=== PATIENT | female | born 1955 | race Two or more races ===

== ENCOUNTER 2025-03-06 12:00 | Inpatient (IN) | payer OTHER ==
[~2025-03-06] VITALS: Ht 160 cm; Wt 56.7 kg
[2025-03-06 15:07] VITALS: BP 160/84
[2025-03-14] MEDS ORDERED: CEFTRIAXONE SODIUM 2,000 MG VIAL ONE (05:50)
[2025-03-14] MEDS ORDERED: METRONIDAZOLE/SODIUM CHLORIDE 500 MG/100 ML PIGGYBACK IV ONE (05:50)
[2025-03-14] MEDS ORDERED: SUGAMMADEX SODIUM 200 MG/2 ML VIAL IV ONE (08:41)
[2025-03-14] MEDS ORDERED: FAMOTIDINE/PF 20 MG/2 ML VIAL IV PUSH SCH (10:00)
[2025-03-14] MEDS ORDERED: CIPROFLOXACIN IN 5 % DEXTROSE 400 MG/200 ML PIGGYBAG IV SCH (10:00)
[2025-03-14] MEDS ORDERED: OxyCODONE HCL 5 MG TABLET (ROXICODONE) PO PRN (10:00)
[2025-03-14] MEDS ORDERED: RINGERS SOLUTION,LACTATED 1,000 ML IV SCH (10:00)
[2025-03-14] MEDS ORDERED: ONDANSETRON HCL 2 MG/ML VIAL IV PRN (10:00)
[2025-03-14] MEDS ORDERED: METRONIDAZOLE/SODIUM CHLORIDE 500 MG/100 ML PIGGYBACK IV SCH (10:00)
[2025-03-14] MEDS ORDERED: MORPHINE SULFATE 4 MG/ML CARTRIDGE IV PRN (10:00)
[2025-03-14] MEDS ORDERED: LACTOBACILLUS ACIDOPHILUS 1 CAP CAP PO SCH (10:01)
[2025-03-14] MEDS ORDERED: CIPROFLOXACIN IN 5 % DEXTROSE 400 MG/200 ML PIGGYBAG IV ONE (11:40)
[2025-03-14] MEDS ORDERED: FAMOTIDINE/PF 20 MG/2 ML VIAL ONE (11:41)
[2025-03-14] MEDS ORDERED: ACETAMINOPHEN 500 MG GEL..CAP PO SCH (12:00)
[2025-03-14] MEDS ORDERED: HYOSCYAMINE SULFATE 0.125 MG TAB.SUBL SL SCH (13:00)
[2025-03-14 16:05] VITALS: BP 145/75; O2SAT 100
[2025-03-14] MEDS ORDERED: GABAPENTIN 300 MG CAPSULE PO SCH (17:00)
[2025-03-15 00:37] VITALS: BP 109/64; O2SAT 98
[2025-03-15 06:49] LABS: BASO % 0.2 % (0.1-1.2); EOS # 0.00 (0.04-0.54); EOS % 0.0 % (0.7-7.0); LYMPH # 1.17 (1.18-3.74); LYMPH % 10.2 % (19.3-53.1); MEAN PLATELET VOLUME 9.30 fl (9.4-12.4); MONO # 1.10 (0.24-0.82); MONO % 9.6 % (4.7-12.5); NEUT # 9.15 (1.56-6.13); NEUT % 79.7 % (34.0-71.1); RED CELL DISTRIBUTION WIDTH 13.2 % (11.6-14.4)
[2025-03-15 08:00] VITALS: BP 115/63; O2SAT 98
[2025-03-15 09:43] LABS: BUN CREA RATIO 11.0 (7.0-25.0); CREATININE SERUM 0.57 mg/dL (0.55-1.02); GFR 105.17; GLUCOSE FASTING 120.0 mg/dL (65-100); OSMOLALITY SERUM 286.0 MOSM/KG (275-295)
[2025-03-15] MEDS ORDERED: POTASSIUM CHLORIDE 20MEQ/100ML H2O PB IV NR (11:30)
[2025-03-15 16:04] VITALS: BP 145/76; O2SAT 99
[2025-03-15] MEDS ORDERED: ENOXAPARIN SODIUM 40 MG/0.4 ML SYRINGE SUBCUTANEO SCH (17:00)
[2025-03-16 00:17] VITALS: BP 116/68; O2SAT 96
[2025-03-16 07:54] LABS: BASO % 0.3 % (0.1-1.2); EOS # 0.04 (0.04-0.54); EOS % 0.4 % (0.7-7.0); LYMPH # 1.61 (1.18-3.74); LYMPH % 14.1 % (19.3-53.1); MEAN PLATELET VOLUME 9.20 fl (9.4-12.4); MONO # 0.96 (0.24-0.82); MONO % 8.4 % (4.7-12.5); NEUT # 8.71 (1.56-6.13); NEUT % 76.4 % (34.0-71.1); RED CELL DISTRIBUTION WIDTH 13.4 % (11.6-14.4)
[2025-03-16 08:00] VITALS: BP 126/68; O2SAT 98
[2025-03-16 08:29] LABS: BUN CREA RATIO 13.0 (7.0-25.0); CREATININE SERUM 0.39 mg/dL (0.55-1.02); GFR 162.95; GLUCOSE FASTING 94.0 mg/dL (65-100); OSMOLALITY SERUM 288.0 MOSM/KG (275-295)
[2025-03-16] MEDS ORDERED: ENOXAPARIN SODIUM 40 MG/0.4 ML SYRINGE SUBCUTANEO SCH (09:00)
[2025-03-16] MEDS ORDERED: Cyanocobalamin/Mecobalamin 1 TAB.SL SL SCH (09:28)
[2025-03-16] MEDS ORDERED: POTASSIUM CHLORIDE 20MEQ/100ML H2O PB IV NR (09:30)
[2025-03-16] MEDS ORDERED: POTASSIUM PHOS,M-BASIC-D-BASIC 15 MM in 0.9 % SODIUM CHLORIDE 250 ML IV NR (09:30)
[2025-03-16] MEDS ORDERED: SOD FERRIC GLUC COMPLX/SUCROSE 62.5 MG in 0.9 % SODIUM CHLORIDE 50 ML IV SCH (12:00)
[2025-03-16 16:00] VITALS: BP 125/67; O2SAT 99
[2025-03-17 00:18] VITALS: BP 117/65; O2SAT 97
[2025-03-17 06:55] LABS: BASO % 0.3 % (0.1-1.2); EOS # 0.07 (0.04-0.54); EOS % 0.7 % (0.7-7.0); LYMPH # 1.11 (1.18-3.74); LYMPH % 11.0 % (19.3-53.1); MEAN PLATELET VOLUME 9.40 fl (9.4-12.4); MONO # 0.70 (0.24-0.82); MONO % 6.9 % (4.7-12.5); NEUT # 8.16 (1.56-6.13); NEUT % 80.8 % (34.0-71.1); RED CELL DISTRIBUTION WIDTH 13.2 % (11.6-14.4)
[2025-03-17 08:44] VITALS: BP 117/61; O2SAT 98
[2025-03-17] MEDS ORDERED: INTESTINEX680 M1 PO (15:35)
[2025-03-17] MEDS ORDERED: HYOSCYAMINE0.125 M1 SL (15:36)
[2025-03-17] MEDS ORDERED: MIRALAX510 GM PO (15:36)
[2025-03-17] MEDS ORDERED: INTEGRA F CAPS1 EACH PO (15:36)
[2025-03-17 17:13] VITALS: BP 163/82; O2SAT 99
== END 2025-03-17 18:37 | disposition home or self-care (01) | DRG 330 ==
LOC: O/R 03-14 06:00 → SURH 03-14 07:00
PROVIDERS: Internal Medicine Geriatric Medicine; ADMIT Surgery; ATTEND Surgery
PROC: 0DBP4ZZ Excision of Rectum, Percutaneous Endoscopic Approach (ICD-10-PCS; 2025-03-14)
PROC: 0DNW4ZZ Release Peritoneum, Percutaneous Endoscopic Approach (ICD-10-PCS; 2025-03-14)
PROC: 0DJD8ZZ Inspection of Lower Intestinal Tract, Via Natural or Artificial Opening Endoscopic (ICD-10-PCS; 2025-03-14)
PROC: 0DTN4ZZ Resection of Sigmoid Colon, Percutaneous Endoscopic Approach (ICD-10-PCS; principal; 2025-03-14 07:00)
PROC: BW2GZZZ Computerized Tomography (CT Scan) of Pelvic Region (ICD-10-PCS; 2025-03-17)
DX: K57.32 Diverticulitis of large intestine without perforation or abscess without bleeding (principal); K56.690 Other partial intestinal obstruction; R10.9 Unspecified abdominal pain